=== PATIENT | male | born 1935 | race Two or more races ===

== ENCOUNTER 2021-10-29 22:36 | Inpatient (IN) | payer MEDICARE, OTHER ==
[~2021-10-29] VITALS: Ht 162.6 cm; Wt 63.5 kg
--- NOTE | 2021-10-29 22:38 | NUR ---
STEVE SCHNEIDER, from [facility] c/o SOB. was discharged from [facility] today. pt recieved on NRBM.
--- NOTE | 2021-10-29 22:59 | NUR ---
pt with gtube and f/c with arrival to er. RT at bedside connecting bipap. Picc line nurse in room for insertion of picc line.
--- NOTE | 2021-10-29 23:24 | NUR ---
midline insertion by PICC nurse to right upper extremity. blood sent to lab
--- NOTE | 2021-10-29 23:27 | NUR ---
BIPAP settings set to 15/5 rate of 18 @ 100% fiO2. patient RR ranges from 24-34.
[2021-10-29 23:28] LABS: HEMATOCRIT 31.1 % (36.7-47.1); PLATELET COUNT (AUTO) 294 K/uL (152-348)
[2021-10-29 23:36] LABS: CARBON DIOXIDE 30 mmol/L (21-32); CHLORIDE 102 mmol/L (98-107); CREATININE 0.6 mg/dL (0.6-1.3); GLUCOSE 158 mg/dL (74-106); UREA NITROGEN, BLOOD 10 mg/dL (7-18)
--- NOTE | 2021-10-29 23:45 | NUR ---
cxr completed, pt's sons at bedside. I informed them of the status of the patient that he is not doing well and that the er md will be in to discuss his condition.
[2021-10-29 23:53] LABS: BILIRUBIN,DIRECT 0.1 mg/dL (0.0-0.2); BILIRUBIN,TOTAL 0.2 mg/dL (0.2-1.0)
[2021-10-29 23:54] LABS: ALANINE AMINOTRANSFERASE 15 U/L (16-63); ALKALINE PHOSPHATASE 116 U/L (50-136); ASPARTATE AMINOTRANSFERASE 9 U/L (15-37)
[2021-10-29 23:55] LABS: TOTAL PROTEIN, SERUM 5.8 g/dL (6.4-8.2)
[2021-10-30] VITALS (22 sets, daily range): BP systolic 57–120; BP diastolic 25–80
--- NOTE | 2021-10-30 00:01 | NUR ---
DR Garcia speaking with sons regarding patient's status. BP decreased. order recieved to give 1L NS. patient's sons name and contact: Felecia Freeman Junior Freeman
[2021-10-30] MEDS ORDERED: TAMS-3 GT (00:02)
[2021-10-30] MEDS ORDERED: POTASSIUM CHLOR GT (00:02)
[2021-10-30] MEDS ORDERED: BISA10SU61 RC (00:02)
[2021-10-30] MEDS ORDERED: MULT-213 GT (00:02)
[2021-10-30] MEDS ORDERED: ZINC57OI3 TP (00:02)
[2021-10-30] MEDS ORDERED: SENN-261 GT (00:02)
[2021-10-30] MEDS ORDERED: ATOR10TA GT (00:02)
[2021-10-30] MEDS ORDERED: ASCO-375 GT (00:02)
[2021-10-30] MEDS ORDERED: MEMA10TA GT (00:02)
[2021-10-30] MEDS ORDERED: APIX2.5T GT (00:02)
[2021-10-30] MEDS ORDERED: AMIO200T5 GT (00:02)
[2021-10-30] MEDS ORDERED: LEVA0.6320 IH (00:02)
[2021-10-30 00:03] LABS: *BILIRUBIN,URIN NEGATIVE (NEGATIVE); *CLARITY,URINE CLEAR (CLEAR); *COLOR,URINE YELLOW (YELLOW); *KETONES,URINE NEGATIVE (NEGATIVE); *UROBILINOGEN,URINE 0.2 E.U./dl (NORMAL); LEUKOCYTE ESTERASE ,URINE NEGATIVE (NEGATIVE); NITRITE, URINE NEGATIVE (NEGATIVE); PH,URINE 6.5 (5.0-8.0); UGLUCOSE NEGATIVE (NEGATIVE)
[2021-10-30 00:08] LABS: *BLOOD, URINE TRACE (NEGATIVE)
--- NOTE | 2021-10-30 00:08 | NUR ---
called Dr Snehal Dow. voicemail left for him to call back
[2021-10-30 00:13] LABS: BACTERIA,URINE NONE SEEN /HPF (NONE SEEN); RBC,URINE 0-3 /HPF (0-3); SQUAMOUS EPITHELIAL CELL,UR FEW /HPF (NONE SEEN); WBC,URINE 0-3 /HPF (0-3)
--- NOTE | 2021-10-30 00:16 | NUR ---
EPIC panel DR Vega paged for admission.
[2021-10-30] MEDS ORDERED: PIPERACILLIN SODIUM/TAZOBACTAM 3.375 G in IV DEXTROSE 5% 50 ML IV ONE (00:30)
[2021-10-30] MEDS ORDERED: VANCOMYCIN IV 1,000 MG in IV DEXTROSE 5% 250 ML IV ONE (00:30)
--- NOTE | 2021-10-30 00:40 | NUR ---
DR Vega called back. orders recieved. for admission to ICU
[2021-10-30] MEDS ORDERED: IV NS 1000 ML 1,000 ML IV ONE ×2 (00:45→02:30)
--- NOTE | 2021-10-30 00:47 | NUR ---
report given to Marly. pt to go to ICU 1.
[2021-10-30 00:48] LABS: ABG BASE EXCESS 0.2 mmol/L; ABG HCO3 24.8 mmol/L; ABG PCO2 39.6 mmHg (35.0-45.0); ABG PH 7.414 (7.350-7.450); ABG PO2 55.5 mmHg (75.0-100.0); ABG SITE RIGHT RADIAL; ABG TOTAL HEMOGLOBIN 10.5 G/dL (13.5-18.0); COHb 0.3 % (0.5-1.5); MetHb 0.5 % (0.0-1.5); O2Hb 86.5 % (94.0-97.0); VENT MODE BIPAP
[2021-10-30] MEDS ORDERED: IPRATROPIUM BROMIDE 0.5 MG/2.5 ML NEBU NEB ONE (01:00)
[2021-10-30] MEDS ORDERED: ENOXAPARIN SODIUM 60 MG/0.6 ML DISP.SYRIN SQ ONE ×2 (01:00→01:17)
[2021-10-30] MEDS ORDERED: ALBUTEROL SULFATE 2.5 MG/3 ML NEBU NEB ONE (01:00)
[2021-10-30] MEDS ORDERED: PIPERACILLIN/TAZOBACTAM/D5W 50 ML IV ONE (01:07)
[2021-10-30] MEDS ORDERED: VANCOMYCIN IV 200 ML ONE (01:07)
--- NOTE | 2021-10-30 01:38 | NUR ---
updated ICU with the ABG results. notified of ICU transfer
--- NOTE | 2021-10-30 01:58 | NUR ---
02:00-PATIENT ON BI/PAP IN ER WITH FULL LARGE MASK, INITIAL SETTINGS, 15/5, RR18, FIO2 @ 100%, WITH ABG PO2 55, GOING TO CCU 1 APPROX. 02:00, WITH SAME CURRENT BI/PAP SETTINGS .PT DNR STATUS, RT TRANSPORT TO CCU 1, BACK ON BI/PAP SAME SETTINGS. Rick KATZP Addendum: 10/30/21 at 0204 by GABRIELA BENOIT RT Amended: Links added.
--- NOTE | 2021-10-30 02:10 | NUR ---
recieved patient lethargic , sinus tachy on 100 %non rebreather , no fever , jose from [place] , midline juan luis , blood pressure of 88/45 hr 117 , oxygen saturation 60 % , , wound on sacral area , skin tea on bridge on the nose , dti on right upper mid back Addendum: 10/30/21 at 0420 by AZRA GAONA RN accompanied by by primary nurse and respiratory therapist
[2021-10-30] MEDS ORDERED: MAGNESIUM HYDROXIDE 30 ML LIQUID UDC PO PRN (02:15)
[2021-10-30] MEDS ORDERED: ONDANSETRON 4 MG/2 ML VIAL IV PRN (02:15)
[2021-10-30] MEDS ORDERED: REMEDY ESSENTIAL ZINC PASTE 113 GM TP PRN (02:15)
[2021-10-30] MEDS ORDERED: ZOLPIDEM 5 MG TABLET PO PRN (02:15)
[2021-10-30] MEDS ORDERED: HYDROCODONE/APAP 5-325MG TABLET PO PRN (02:15)
[2021-10-30] MEDS ORDERED: ACETAMINOPHEN 325 MG TABLET PO PRN (02:15)
--- NOTE | 2021-10-30 02:20 | NUR ---
placed the patient on bipap 15/5 rate of 18 , on 100 % fio2, gt intact and patent
--- NOTE | 2021-10-30 02:29 | NUR ---
pt was placed on a NRBM. pt transported via [facility], with 2 RNs. prior to leaving ER, a DNI was obtained signed by Dr Garcia and pt's sons. MANAV Luke 2nd ICU nurse and RT at bedside to receive pt.
--- NOTE | 2021-10-30 02:34 | NUR ---
unable to take the patient down for ctaa to r/o pe , patient is very unstable and desaturates very quickly without the bipap aware
--- NOTE | 2021-10-30 02:45 | NUR ---
dr jacobs is here at bedside , update given on patient's status , vs and medications given and abg 's and lab work
--- NOTE | 2021-10-30 02:57 | NUR ---
saline bolus given
[2021-10-30] MEDS: IV NS 1000 ML 1,000 ML IV PRN ×3 (03:00→22:15)
[2021-10-30] MEDS ORDERED: PHENYLEPHRINE IV 50 MG in IV NORMAL SALINE 245 ML IV PRN (03:00)
--- NOTE | 2021-10-30 03:12 | NUR ---
bs checked 160
[2021-10-30] MEDS ORDERED: PHENYLEPHRINE 10 MG/1 ML VIAL ONE (03:48)
[2021-10-30 05:17] LABS: HEMATOCRIT 35.2 % (36.7-47.1); MEAN CORPUSCULAR HEMOGLOBIN 28.6 uug (23.8-33.4); MEAN CORPUSCULAR VOLUME 88.4 fL (73.0-96.2); PLATELET COUNT (AUTO) 239 K/uL (152-348)
[2021-10-30 05:33] LABS: ABG HCO3 23.8 mmol/L; ABG PCO2 35.8 mmHg (35.0-45.0); ABG PH 7.441 (7.350-7.450); ABG PO2 40.8 mmHg (75.0-100.0); ABG SITE LEFT RADIAL; ABG TOTAL HEMOGLOBIN 10.3 G/dL (13.5-18.0); COHb 0.3 % (0.5-1.5); MetHb 0.3 % (0.0-1.5); VENT MODE BIPAP
[2021-10-30 05:34] LABS: BILIRUBIN,TOTAL 0.5 mg/dL (0.2-1.0); CREATININE 0.6 mg/dL (0.6-1.3); POTASSIUM 4.6 mmol/L (3.5-5.1); TOTAL PROTEIN, SERUM 6.2 g/dL (6.4-8.2)
--- NOTE | 2021-10-30 06:00 | NUR ---
doctor notified of abg results no order received , patient is still on bipap 15/5 18 100 % fio2 , gt clamped npo , npo , iv ns at 125 ml running midline juan luis , no fever
[2021-10-30] MEDS: PIPERACILLIN SODIUM/TAZOBACTAM 3.375 G in IV DEXTROSE 5% 50 ML IV SCH ×3 (08:29→20:42)
[2021-10-30] MEDS: PANTOPRAZOLE SODIUM 40 MG VIAL IV SCH (08:33)
[2021-10-30] MEDS: AMIODARONE HCL 200 MG TABLET PO SCH (08:34)
[2021-10-30] MEDS ORDERED: PIPERACILLIN SODIUM/TAZOBACTAM 3.375 G in IV DEXTROSE 5% 50 ML IV SCH (09:00)
[2021-10-30] MEDS: ALBUMIN HUMAN 25% 100 ML IV SCH ×3 (10:10→20:43)
[2021-10-30] MEDS: REMEDY ESSENTIAL ZINC PASTE 113 GM TOP SCH ×2 (10:16→20:41)
[2021-10-30] MEDS: ENOXAPARIN SODIUM 60 MG/0.6 ML DISP.SYRIN SQ SCH ×2 (13:01→20:43)
[2021-10-30] MEDS ORDERED: IV NORMAL SALINE 250 ML IV ONE (16:26)
[2021-10-30] MEDS ORDERED: IOHEXOL 350 100 ML INFUS..BTL ONE (16:26)
[2021-10-30] MEDS ORDERED: SWABABLE VALVE TRANSFER SET EA MC ONE (16:26)
--- NOTE | 2021-10-30 19:35 | NUR ---
received patient arousable to dep apin , on3 l nc , picc line intact juan luis , with ns at 125 running , garcia intact , dressing intact on affected wounds , , no fever noted
--- NOTE | 2021-10-30 21:00 | NUR ---
placed patient on bipap 28/12 18 on fio2 100 % , talked to son , updates given , referred to primary physician for explanation of cta done today to rule out pe , verbalizes understanding
--- NOTE | 2021-10-30 22:00 | NUR ---
jana id , is here to see patient ,,updates given on history , procedure done and meication running , current lab results
--- NOTE | 2021-10-30 23:35 | NUR ---
patient was switched back to 3l nc , oxygen saturation maintained at 95 %
[2021-10-31] VITALS (26 sets, daily range): BP systolic 102–147; BP diastolic 40–70
[2021-10-31] MEDS ORDERED: VANCOMYCIN IV 1,000 MG in IV DEXTROSE 5% 250 ML IV SCH (01:00)
--- NOTE | 2021-10-31 01:21 | NUR ---
after cleaning and bed bath labored breathing was noted , was placed back on bipap 15 /5 18 fio2 100 %
[2021-10-31] MEDS: ALBUMIN HUMAN 25% 100 ML IV SCH (01:52)
[2021-10-31] MEDS: PIPERACILLIN SODIUM/TAZOBACTAM 3.375 G in IV DEXTROSE 5% 50 ML IV SCH ×4 (04:27→20:19)
--- NOTE | 2021-10-31 05:50 | NUR ---
dr jacobs is notified of cta angiogram , ordered thoracentesis , and notified of cbc , waiting for repeat
--- NOTE | 2021-10-31 06:00 | NUR ---
Pt found off Bipap and on Nasal Cannula at 5 lpm. spo2 85% at this time. placed pt on Non rebreather mask 100% and monitored patient status. spo2 96% and improving. will continue to monitor and titrate fio2. RN aware.
[2021-10-31 06:05] LABS: MEAN CORPUSCULAR VOLUME 88.2 fL (73.0-96.2); PLATELET COUNT (AUTO) 133 K/uL (152-348)
[2021-10-31 06:20] LABS: CARBON DIOXIDE 27 mmol/L (21-32); CHLORIDE 110 mmol/L (98-107); CREATININE 0.3 mg/dL (0.6-1.3); GLUCOSE 91 mg/dL (74-106); PHOSPHOROUS 2.4 mg/dL (2.5-4.9); UREA NITROGEN, BLOOD 6 mg/dL (7-18)
[2021-10-31] MEDS: IV NS 1000 ML 1,000 ML IV PRN ×2 (06:30→20:17)
[2021-10-31 06:33] LABS: HEMATOCRIT 19.9 % (36.7-47.1)
[2021-10-31 06:44] LABS: LYMPHOCYTES % (MANUAL) 15 % (20-40); MONOCYTES % (MANUAL) 4 % (2-10); NEUTROPHILS % (MANUAL) 81 % (42-75)
--- NOTE | 2021-10-31 06:46 | NUR ---
dr jacobs notified of repeat hgb and potasium levels , received orders of 40 meq kcl iv and i1 unit of prbc to transfuse
[2021-10-31] MEDS: POTASSIUM CHLORIDE 50 ML IV SCH ×4 (07:05→10:14)
--- NOTE | 2021-10-31 07:37 | NUR ---
Received blood transfusion and thoracentesis consent from son Audrey via telephone. Will closely monitor.
[2021-10-31 07:53] LABS: ABG HCO3 26.7 mmol/L; ABG PCO2 48.4 mmHg (35.0-45.0); ABG PH 7.359 (7.350-7.450); ABG PO2 81.4 mmHg (75.0-100.0); ABG SITE RIGHT RADIAL; COHb 0.3 % (0.5-1.5); MetHb 0.6 % (0.0-1.5); O2Hb 93.9 % (94.0-97.0)
--- NOTE | 2021-10-31 08:00 | NUR ---
Received patient awake and responsive to noxious stimuli. Patient on a Non Re Breather mask sating at 100%, slightly tachypneic. TELE Afib at 63. Left upper arm PICC line running fluids, K and abx. Skin tear on the bridge of the nose, gel protector applied. Bilateral upper ext. pitting edema. Abd soft and non distended. Bradley draining clear and yellow urine. Safety initiated. Bed in low and locked position. Will continue to monitor.
[2021-10-31] MEDS: REMEDY ESSENTIAL ZINC PASTE 113 GM TOP SCH ×2 (08:18→20:52)
[2021-10-31] MEDS: PANTOPRAZOLE SODIUM 40 MG VIAL IV SCH ×2 (08:18→20:31)
[2021-10-31] MEDS: AMIODARONE HCL 200 MG TABLET PO SCH (08:18)
[2021-10-31] MEDS: ENOXAPARIN SODIUM 60 MG/0.6 ML DISP.SYRIN SQ SCH (08:19)
--- NOTE | 2021-10-31 09:02 | NUR ---
patient seen and evaluated by dr sullivan with new order of H&H stat.
[2021-10-31 09:39] LABS: HEMATOCRIT 21.4 % (36.7-47.1)
--- NOTE | 2021-10-31 10:05 | NUR ---
Placed pt on Bibap by RT. Addendum: 11/01/21 at 0524 by AHSAN PRITCHARD RN Disregard wrong time.
--- NOTE | 2021-10-31 11:43 | NUR ---
Pt. receiving Blood Transfusion at the moment. Vital Signs stable. No Temp. Will continue to monitor.
[2021-10-31] MEDS ORDERED: BISACODYL 10 MG SUPP.RECT RC PRN (12:45)
[2021-10-31] MEDS ORDERED: LEVALBUTEROL HCL NEB 0.63 MG/3 ML NEBU IH PRN (12:45)
[2021-10-31] MEDS ORDERED: HYDROCODONE/APAP 5-325MG TABLET GT PRN (13:47)
[2021-10-31] MEDS ORDERED: MAGNESIUM HYDROXIDE 30 ML LIQUID UDC GT PRN (13:47)
[2021-10-31] MEDS ORDERED: ZOLPIDEM 5 MG TABLET GT PRN (13:47)
--- NOTE | 2021-10-31 13:53 | NUR ---
Wound care nurse at bedside. Was able to visualize the skin, new recommendations discussed. Will refer to SX per wound care nurse. Will continue to monitor.
--- NOTE | 2021-10-31 13:53 | NUR ---
WOUND CARE CONSULT: PT PRESENTS WITH SACRAL STAGE 3 ULCER WITH SURROUNDING INTACT DEEP TISSUE INJURY (PURPLE DISCOLORATION) AND NASAL BRIDGE INTACT DEEP TISSUE INJURY, PRESENT ON ADMISSION. SURGICAL CONSULT CALLED TO DR TIJERINA. RECOMMENDATIONS MADE FOR SKIN PROTECTION AND WOUND CARE. DISCUSSED WITH NURSING STAFF. PT IS ON FIRST STEP SELECT AT [place] [facility]. LOWER EXTREMITIES ARE CONTRACTED. IN AGREEMENT WITH PLAN OF CARE. Addendum: 10/31/21 at 1354 by JOSIAS ACEVES RN Amended: Links added.
--- NOTE | 2021-10-31 13:54 | NUR ---
Blood transfusion completed. Tolerated it well. Vital signs remains stable.
[2021-10-31] MEDS ORDERED: ALBUTEROL SULFATE 2.5 MG/3 ML NEBU NEB PRN (14:00)
--- NOTE | 2021-10-31 14:05 | NUR ---
Notified Dr. Eagle of results from ultrasound. Requested that this telegraphic typewriter mechanic contact DONATO to evaluate the two results against each other from the the CTA Chest. Contacted DONATO and awaiting call back.
[2021-10-31] MEDS: VANCOMYCIN IV 1,000 MG in IV DEXTROSE 5% 250 ML IV SCH (14:44)
--- NOTE | 2021-10-31 16:25 | NUR ---
Surgery PENSION FUND MANAGER at bedside. New sacral wound recommendations. Will continue to monitor.
[2021-10-31] MEDS ORDERED: NEUTRA PHOS PACKET GT ONE (16:30)
[2021-10-31 17:24] LABS: *OCCULT BLOOD STOOL NEGATIVE (NEGATIVE)
--- NOTE | 2021-10-31 17:26 | NUR ---
Bed bath, wound care and Bradley care provided. Tolerated it well. Will continue to monitor.
--- NOTE | 2021-10-31 19:30 | NUR ---
Recieved report, pt awake with eyes open, unable to follow commands, non verbal. On 100% NR, respiration even and unlabored, NT suctioned by RT with thick whitish secretions moderate in amount, breath sounds auscultated with bilateral rhonchi noted and diminished at the bases, O2 sat 98-100%. On continuous director of cardiac rehabilitation, AFib 60's. Torrey. upper extremeties edema note. PICC line to LUÍS, dressing dry and intact, NS @125 ml/min. Complete physical assessment done, mepilex to sacral area noted, picture taken and placed on chart. Repositioned to sides with complete assist X2 staff. Pericare and oral care done. Bradley to drain bag with clear liliya colored urine. Torrey heels off with pillow under x 1. For BT with 1 unit PRBC as soon as available, consent in chart.
[2021-10-31] MEDS: SENNOSIDES 1 TABLET GT SCH (20:30)
[2021-10-31] MEDS: ATORVASTATIN 10 MG TABLET GT SCH (20:31)
--- NOTE | 2021-10-31 21:17 | NUR ---
2nd unit PRBC checked by 2 RN's, transfusion started, via LUÍS PICC line, will monitor for any BT reaction.
--- NOTE | 2021-10-31 22:10 | NUR ---
Placed pt on Bipap by RT.
[2021-11-01] VITALS (24 sets, daily range): BP systolic 116–150; BP diastolic 40–74
--- NOTE | 2021-11-01 00:20 | NUR ---
2nd unit of PRBC completed, no untowards blood transfution reaction noted. VSS
[2021-11-01] MEDS: THERAHONEY GEL 1.5 OZ TUBE TOP SCH ×2 (01:00→09:01)
[2021-11-01] MEDS: PIPERACILLIN SODIUM/TAZOBACTAM 3.375 G in IV DEXTROSE 5% 50 ML IV SCH ×4 (01:13→19:49)
[2021-11-01] MEDS: IV NS 1000 ML 1,000 ML IV PRN (03:38)
[2021-11-01 04:23] LABS: HEMATOCRIT 28.3 % (36.7-47.1); MEAN CORPUSCULAR VOLUME 90.2 fL (73.0-96.2); PLATELET COUNT (AUTO) 148 K/uL (152-348)
[2021-11-01 04:36] LABS: CARBON DIOXIDE 27 mmol/L (21-32); CHLORIDE 110 mmol/L (98-107); CREATININE 0.4 mg/dL (0.6-1.3); GLUCOSE 72 mg/dL (74-106); MAGNESIUM 1.8 mg/dL (1.8-2.4); POTASSIUM 3.2 mmol/L (3.5-5.1); UREA NITROGEN, BLOOD 4 mg/dL (7-18)
[2021-11-01] MEDS: VANCOMYCIN IV 1,000 MG in IV DEXTROSE 5% 250 ML IV SCH (05:10)
--- NOTE | 2021-11-01 05:10 | NUR ---
Vanco trough 14.3, Vanco 1 gm IV started.
--- NOTE | 2021-11-01 08:06 | NUR ---
received resident responsive to tactile stimuli, on bipap machine tolerating well, bipap was changed to simple face mask by technology professional, abg pending
[2021-11-01] MEDS: POTASSIUM CHLORIDE 50 ML IV SCH ×3 (08:51→10:33)
[2021-11-01] MEDS: AMIODARONE HCL 200 MG TABLET GT SCH (08:52)
[2021-11-01] MEDS: ASCORBIC ACID 250 MG TABLET GT SCH (08:53)
[2021-11-01] MEDS: DOXAZOSIN 1 MG TABLET GT SCH (08:54)
[2021-11-01] MEDS: MULTIVITAMINS,THERAPEUTIC TABLET GT SCH (08:54)
[2021-11-01] MEDS: MEMANTINE HCL 10 MG TABLET GT SCH (08:54)
[2021-11-01] MEDS: PANTOPRAZOLE SODIUM 40 MG VIAL IV SCH ×2 (08:59→20:25)
[2021-11-01] MEDS ORDERED: Medication Not On Formulary EA (Multivitamins W-Minerals (Multivitamin With Minerals) 1 GT SCH (09:00)
[2021-11-01] MEDS ORDERED: POTASSIUM CHLORIDE 20 MEQ POWDER PACKET GT SCH (09:00)
[2021-11-01] MEDS ORDERED: TAMSULOSIN HCL 0.4 MG CAP.SR.24H PO SCH (09:00)
[2021-11-01] MEDS ORDERED: POTASSIUM CHLOR 20 MEQ GT SCH (09:00)
[2021-11-01] MEDS ORDERED: AMIODARONE HCL 200 MG TABLET GT SCH (09:00)
[2021-11-01] MEDS: REMEDY ESSENTIAL ZINC PASTE 113 GM TOP SCH ×2 (09:02→20:27)
[2021-11-01 09:19] LABS: ABG BASE EXCESS -4.3 mmol/L; ABG HCO3 21.4 mmol/L; ABG PCO2 41.9 mmHg (35.0-45.0); ABG PH 7.327 (7.350-7.450); ABG PO2 54.6 mmHg (75.0-100.0); ABG SITE LEFT RADIAL; ABG TOTAL HEMOGLOBIN 10.6 G/dL (13.5-18.0); COHb 0.3 % (0.5-1.5); MetHb 0.4 % (0.0-1.5); O2Hb 87.1 % (94.0-97.0)
--- NOTE | 2021-11-01 11:12 | NUR ---
patient seen and evalauted by Dr. Loza with new order to decrease 0.9 ns 1000ml @50cc/hr.
[2021-11-01] MEDS ORDERED: IV NS 1000 ML 1,000 ML IV PRN (11:14)
[2021-11-01] MEDS: ALBUTEROL SULFATE 2.5 MG/ 0.5 ML NEBU NEB SCH ×2 (13:02→18:56)
[2021-11-01] MEDS: ACETYLCYSTEINE 20% 800 MG/4 ML VIAL NEB SCH ×2 (13:02→18:56)
[2021-11-01] MEDS: IPRATROPIUM BROMIDE 0.5 MG/2.5 ML NEBU NEB SCH ×2 (13:02→18:56)
[2021-11-01] MEDS ORDERED: LEVALBUTEROL HCL NEB 0.63 MG/3 ML NEBU NEB SCH (13:30)
[2021-11-01] MEDS ORDERED: POTASSIUM CHLORIDE 20 MEQ POWDER PACKET GT ONE (15:15)
--- NOTE | 2021-11-01 15:15 | NUR ---
Patient seen and evaluated by Kristina Garibay. Ordered lasix and potassium daily.
[2021-11-01] MEDS: FUROSEMIDE 20 MG/2 ML VIAL IV SCH (15:50)
[2021-11-01] MEDS: POTASSIUM CHLORIDE 20 MEQ POWDER PACKET GT SCH (15:52)
[2021-11-01] MEDS ORDERED: VANCOMYCIN IV 1,000 MG in IV DEXTROSE 5% 250 ML IV SCH (17:00)
[2021-11-01] MEDS: SENNOSIDES 1 TABLET GT SCH (20:25)
[2021-11-01] MEDS: ATORVASTATIN 10 MG TABLET GT SCH (20:25)
--- NOTE | 2021-11-01 22:05 | NUR ---
Placed pt on Bipap by RT.
[2021-11-02] VITALS (23 sets, daily range): BP systolic 116–143; BP diastolic 31–78
[2021-11-02] MEDS: IPRATROPIUM BROMIDE 0.5 MG/2.5 ML NEBU NEB SCH ×4 (00:49→19:18)
[2021-11-02] MEDS: ALBUTEROL SULFATE 2.5 MG/ 0.5 ML NEBU NEB SCH ×4 (00:49→19:18)
[2021-11-02] MEDS: ACETYLCYSTEINE 20% 800 MG/4 ML VIAL NEB SCH ×4 (00:49→19:18)
[2021-11-02] MEDS: PIPERACILLIN SODIUM/TAZOBACTAM 3.375 G in IV DEXTROSE 5% 50 ML IV SCH ×4 (01:13→19:42)
[2021-11-02 05:21] LABS: HEMATOCRIT 29.6 % (36.7-47.1); MEAN CORPUSCULAR VOLUME 89.5 fL (73.0-96.2); PLATELET COUNT (AUTO) 157 K/uL (152-348)
[2021-11-02 05:36] LABS: CARBON DIOXIDE 26 mmol/L (21-32); CHLORIDE 109 mmol/L (98-107); CREATININE 0.5 mg/dL (0.6-1.3); GLUCOSE 67 mg/dL (74-106); MAGNESIUM 1.8 mg/dL (1.8-2.4); PHOSPHOROUS 3.4 mg/dL (2.5-4.9); POTASSIUM 3.7 mmol/L (3.5-5.1); UREA NITROGEN, BLOOD 4 mg/dL (7-18)
[2021-11-02 08:01] LABS: ABG BASE EXCESS -0.7 mmol/L; ABG HCO3 23.9 mmol/L; ABG PCO2 39.1 mmHg (35.0-45.0); ABG PH 7.404 (7.350-7.450); ABG PO2 68.6 mmHg (75.0-100.0); ABG SITE LEFT RADIAL; ABG TOTAL HEMOGLOBIN 11.4 G/dL (13.5-18.0); COHb 0.3 % (0.5-1.5); MetHb 0.4 % (0.0-1.5); O2Hb 93.1 % (94.0-97.0)
--- NOTE | 2021-11-02 08:06 | NUR ---
pt removed from bipap and now on nonrebreather, pending ABGs at 0900.
[2021-11-02] MEDS: DOXAZOSIN 1 MG TABLET GT SCH (08:45)
[2021-11-02] MEDS: MEMANTINE HCL 10 MG TABLET GT SCH (08:46)
[2021-11-02] MEDS: AMIODARONE HCL 200 MG TABLET GT SCH (08:46)
[2021-11-02] MEDS: MULTIVITAMINS,THERAPEUTIC TABLET GT SCH (08:46)
[2021-11-02] MEDS: POTASSIUM CHLORIDE 20 MEQ POWDER PACKET GT SCH (08:46)
[2021-11-02] MEDS: PANTOPRAZOLE SODIUM 40 MG VIAL IV SCH ×2 (08:47→20:29)
[2021-11-02] MEDS: ASCORBIC ACID 250 MG TABLET GT SCH (08:47)
[2021-11-02] MEDS: FUROSEMIDE 20 MG/2 ML VIAL IV SCH (08:47)
[2021-11-02] MEDS: REMEDY ESSENTIAL ZINC PASTE 113 GM TOP SCH ×2 (08:47→20:30)
[2021-11-02] MEDS: THERAHONEY GEL 1.5 OZ TUBE TOP SCH (08:49)
--- NOTE | 2021-11-02 09:30 | NUR ---
ABG results improving, CXR showing improvement from yesterday
--- NOTE | 2021-11-02 11:00 | NUR ---
pt family at bedside, concerned about not having nutrition for a few days. Concerns mentioned to TURNER MACHINE OPERATOR, per TURNER MACHINE OPERATOR and pt son's conversation yesterday, goal was to wait until hgb was stable enough.
--- NOTE | 2021-11-02 12:00 | NUR ---
Spoke to hospitalist, okay for pt to resume tube feeding. Hgb level is 9.9. Jevity 1.2 and lila started, will continue to monitor
[2021-11-02] MEDS: ARGININE/GLUTAMINE/CALCIUM BMB 1 EACH POWD.PACK GT SCH ×2 (13:03→17:27)
[2021-11-02] MEDS: JEVITY 1.2 1000 ML LIQUID GT PRN (13:03)
--- NOTE | 2021-11-02 19:00 | NUR ---
Received patient on NRB mask at 15lpm o2. Patient was then placed on BIPAP 15/5 R18 100% FiO2 as ordered. Vent plugged on red outlet, settings checked and alarm audible and within normal limits. Suctioned PRN. Will continue to monitor.
--- NOTE | 2021-11-02 19:30 | NUR ---
Report received from outgoing RN, pt awake with eyes open non verbal. On 100% NRB, O2 sat adeq. respiration even and unlabored. HOB elevated, aspiration precaution maintained. TF via PEG with Jevity 1.2 at 30 ml/hr. Repositioned to side. Bradley intact, draining large amount of clear yellow urine.
--- NOTE | 2021-11-02 20:00 | NUR ---
Receiving TF gastric residual 220ml, Alka COCHRAN made aware with orders made and carried out.
[2021-11-02] MEDS: SENNOSIDES 1 TABLET GT SCH (20:29)
[2021-11-02] MEDS: ATORVASTATIN 10 MG TABLET GT SCH (20:29)
--- NOTE | 2021-11-02 22:05 | NUR ---
NT suctioned by RT with thick whitish secretions moderate in amt. HR 120-130's, repositioned pt to side. Placed on Bipap 5/15, RR 18 100% FIO2 by RT. Closely monitored.
[2021-11-03] VITALS (20 sets, daily range): BP systolic 98–139; BP diastolic 33–74
--- NOTE | 2021-11-03 | NUR ---
Gastric residual 100 ml, TF with Jevity 1.2 at 20 ml/hr. Aspiration prec maintained.
[2021-11-03] MEDS: ACETYLCYSTEINE 20% 800 MG/4 ML VIAL NEB SCH ×4 (00:42→19:31)
[2021-11-03] MEDS: IPRATROPIUM BROMIDE 0.5 MG/2.5 ML NEBU NEB SCH ×4 (00:43→19:31)
[2021-11-03] MEDS: ALBUTEROL SULFATE 2.5 MG/ 0.5 ML NEBU NEB SCH ×4 (00:43→19:31)
[2021-11-03] MEDS: PIPERACILLIN SODIUM/TAZOBACTAM 3.375 G in IV DEXTROSE 5% 50 ML IV SCH ×4 (01:16→19:58)
[2021-11-03 04:53] LABS: HEMATOCRIT 32.6 % (36.7-47.1); MEAN CORPUSCULAR HEMOGLOBIN 29.3 uug (23.8-33.4); MEAN CORPUSCULAR VOLUME 88.9 fL (73.0-96.2); PLATELET COUNT (AUTO) 194 K/uL (152-348)
[2021-11-03 05:04] LABS: CREATININE 0.6 mg/dL (0.6-1.3); MAGNESIUM 1.8 mg/dL (1.8-2.4); PHOSPHOROUS 3.2 mg/dL (2.5-4.9); POTASSIUM 3.2 mmol/L (3.5-5.1)
[2021-11-03] MEDS ORDERED: POTASSIUM CHLORIDE 20 MEQ POWDER PACKET GT ONE (07:00)
--- NOTE | 2021-11-03 07:30 | NUR ---
RT Quentin is at bedside, oral care, CPT, suctions and breathing tx done by RT. Changed from non re breather to simple mask at 10L sating at 97%. Will closely monitor.
[2021-11-03] MEDS: POTASSIUM CHLORIDE 50 ML IV SCH ×4 (07:54→11:27)
[2021-11-03] MEDS: ALBUMIN HUMAN 25% 100 ML IV SCH ×3 (07:57→17:40)
--- NOTE | 2021-11-03 08:00 | NUR ---
Albumin started per order. No adverse reaction noted. Will closely monitor.
--- NOTE | 2021-11-03 08:00 | NUR ---
Received patient laying in bed. Lethargic. Unable to open eyes when name is called or to painful stimuli. Pt is on simple mask at 10L. Vital signs stable, No temperature. SR at 89 in the monitor. PICC on the left upper arm and midline on the right upper arm, remains patent and intact. correction assessment done BUE swelling and bruises. Sacral wound, dressing in place. Lower extremities rigid. Bradley draining clear and yellow urine. GTUBE in place, tolerating feeding Jevity 1.2 at 40 cc/hr. Safety initiated. Call light within reach. Will closely monitor.
[2021-11-03] MEDS: ASCORBIC ACID 250 MG TABLET GT SCH (08:35)
[2021-11-03] MEDS: AMIODARONE HCL 200 MG TABLET GT SCH (08:35)
[2021-11-03] MEDS: MULTIVITAMINS,THERAPEUTIC TABLET GT SCH (08:35)
[2021-11-03] MEDS: PANTOPRAZOLE SODIUM 40 MG VIAL IV SCH ×2 (08:35→20:56)
[2021-11-03] MEDS: MEMANTINE HCL 10 MG TABLET GT SCH (08:35)
[2021-11-03] MEDS: FUROSEMIDE 20 MG/2 ML VIAL IV SCH (08:35)
--- NOTE | 2021-11-03 08:45 | NUR ---
Fco at bedside. Update given. Fco has spoken to son Audrey via telephone. Will continue to monitor.
[2021-11-03] MEDS: DOXAZOSIN 1 MG TABLET GT SCH (09:00)
--- NOTE | 2021-11-03 09:00 | NUR ---
Corey BOOKKEEPING TEACHER is at bedside. Update given. Will continue to monitor.
[2021-11-03] MEDS: REMEDY ESSENTIAL ZINC PASTE 113 GM TOP SCH ×2 (09:14→20:56)
[2021-11-03] MEDS: THERAHONEY GEL 1.5 OZ TUBE TOP SCH (09:14)
[2021-11-03] MEDS: ARGININE/GLUTAMINE/CALCIUM BMB 1 EACH POWD.PACK GT SCH ×2 (09:14→16:28)
--- NOTE | 2021-11-03 09:16 | NUR ---
Spoke to Pharmacy LINDSAY Martinez, BP is 99/50 and pt is receiving Lasix IV. Will closely monitor.
[2021-11-03] MEDS: POTASSIUM CHLORIDE 20 MEQ POWDER PACKET GT SCH (09:23)
--- NOTE | 2021-11-03 09:39 | NUR ---
Pt is a more lethargic today. Pt does not open eyes to name or painful stimuli. Brother was just at bedside and per his cousin "he was able to open his eye and nod yes" to him yesterday. SAMMIE Nicole was made aware. No new orders.
--- NOTE | 2021-11-03 10:25 | NUR ---
RT at bedside suctioning pt. Pt was able to look up at the RT as he was suctioning. Will closely monitor.
--- NOTE | 2021-11-03 12:03 | NUR ---
Pt desaturated to the high 70's low 80's. Pulmonary toileting being done by RT. Pt now back on BiPAP 15/5 rate of 18 at 100% FiO2. Health care provided made aware. Will continue to monitor.
--- NOTE | 2021-11-03 12:13 | NUR ---
Pt is on BiPAP 15/5 rate 18 FiO2 of 100% but pt is still SOB and still saturating in the low 80's. Health care provider made aware, new orders to do a STAT CXR. Will closely monitor.
--- NOTE | 2021-11-03 12:35 | NUR ---
Hold tube feeding per Corey [employer]CINCT POLICE LIEUTENANT. Will continue to monitor.
--- NOTE | 2021-11-03 15:14 | NUR ---
Remove PICC line on the left upper arm as ordered by HCP. Will continue to monitor.
--- NOTE | 2021-11-03 18:32 | NUR ---
Pt remains on BiPAP in the rate of 28/12 at 100%. Oral care provided. Catheter care provided. Turned and repositioned Q2H. Afebrile. GT feeding is held per MD order. Vital signs stable. Good urine output. No new skin issues noted. All meds given as ordered. All needs met. Safety and comfort measures maintained t/o shift.
--- NOTE | 2021-11-03 19:30 | NUR ---
Report received. Patient's sons at bedside. Plan of care discussed including DNI, both verbalized understanding. Patient with eyes open, non verbal, appears to watch TV but doesn't follow any commands. On BIPAP settings 15/5 rate=18 and KDY2=802%. O2 saturations 100%. risk management professional SR rate 70's-80's. Assessment done. Addendum: 11/04/21 at 0115 by LORENA LEIVA RN Amended: Links added. Addendum: 11/04/21 at 0119 by LORENA LEIVA RN Amended: Links added. Addendum: 11/04/21 at 0120 by LORENA LEIVA RN Amended: Links added. Addendum: 11/04/21 at 0120 by LORENA LEIVA RN Amended: Links added. Addendum: 11/04/21 at 0120 by LORENA LEIVA RN Amended: Links added. Addendum: 11/04/21 at 0121 by LORENA LEIVA RN Amended: Links added.
--- NOTE | 2021-11-03 20:00 | NUR ---
RT at bedside; treatments given. Patient turned and repositioned. Nasopharyngeal deep suctioning done by RT post treatments. With thick white to beck secretions. Has poor cough reflex. Oral care rendered. Still non verbal. Addendum: 11/04/21 at 0119 by LORENA LEIVA RN Amended: Links added. Addendum: 11/04/21 at 0120 by LORENA LEIVA RN Amended: Links added. Addendum: 11/04/21 at 0120 by LORENA LEIVA RN Amended: Links added. Addendum: 11/04/21 at 0120 by LORENA LEIVA RN Amended: Links added. Addendum: 11/04/21 at 0121 by LORENA LEIVA RN Amended: Links added.
[2021-11-03] MEDS: ATORVASTATIN 10 MG TABLET GT SCH (20:57)
[2021-11-03] MEDS: SENNOSIDES 1 TABLET GT SCH (20:58)
--- NOTE | 2021-11-03 23:30 | NUR ---
Patient's son called; updated of condition.
[2021-11-04] VITALS (24 sets, daily range): BP systolic 104–144; BP diastolic 56–86
--- NOTE | 2021-11-04 | NUR ---
GT feedings tolerated well at 20ml/H; rate increased to 30ml/H.
[2021-11-04] MEDS ORDERED: ALBUMIN HUMAN 25% 50 ML ONE ×2 (00:16)
[2021-11-04] MEDS: ALBUMIN HUMAN 25% 100 ML IV SCH (00:25)
[2021-11-04] MEDS: ACETYLCYSTEINE 20% 800 MG/4 ML VIAL NEB SCH ×4 (01:03→21:04)
[2021-11-04] MEDS: IPRATROPIUM BROMIDE 0.5 MG/2.5 ML NEBU NEB SCH ×4 (01:03→21:04)
[2021-11-04] MEDS: ALBUTEROL SULFATE 2.5 MG/ 0.5 ML NEBU NEB SCH ×4 (01:03→21:05)
[2021-11-04] MEDS: PIPERACILLIN SODIUM/TAZOBACTAM 3.375 G in IV DEXTROSE 5% 50 ML IV SCH ×3 (01:26→13:38)
[2021-11-04 04:58] LABS: HEMATOCRIT 31.7 % (36.7-47.1); MEAN CORPUSCULAR VOLUME 90.2 fL (73.0-96.2); PLATELET COUNT (AUTO) 175 K/uL (152-348)
[2021-11-04 05:15] LABS: CARBON DIOXIDE 36 mmol/L (21-32); CHLORIDE 103 mmol/L (98-107); CREATININE 0.5 mg/dL (0.6-1.3); GLUCOSE 135 mg/dL (74-106); MAGNESIUM 1.6 mg/dL (1.8-2.4); POTASSIUM 3.7 mmol/L (3.5-5.1); UREA NITROGEN, BLOOD 19 mg/dL (7-18)
--- NOTE | 2021-11-04 06:33 | NUR ---
Cleaned for small soft brown BM. Tachypneic and desaturates easily during care such as oral care, turning and repositioning. O2 sats down to 83-85% HOB elevated above 30 degrees at all times. BPs remain stable. Addendum: 11/04/21 at 0634 by LORENA LEIVA RN Amended: Links added. Addendum: 11/04/21 at 0635 by LORENA LEIVA RN Amended: Links added.
[2021-11-04] MEDS: ACETAMINOPHEN 325 MG TABLET GT PRN ×2 (06:36→20:25)
[2021-11-04] MEDS: PANTOPRAZOLE SODIUM 40 MG VIAL IV SCH ×2 (08:03→20:16)
[2021-11-04] MEDS: DOXAZOSIN 1 MG TABLET GT SCH (08:05)
[2021-11-04] MEDS: POTASSIUM CHLORIDE 20 MEQ POWDER PACKET GT SCH (08:05)
[2021-11-04] MEDS: ASCORBIC ACID 250 MG TABLET GT SCH (08:06)
[2021-11-04] MEDS: MULTIVITAMINS,THERAPEUTIC TABLET GT SCH (08:06)
[2021-11-04] MEDS: AMIODARONE HCL 200 MG TABLET GT SCH (08:06)
[2021-11-04] MEDS: ARGININE/GLUTAMINE/CALCIUM BMB 1 EACH POWD.PACK GT SCH ×2 (08:08→17:06)
[2021-11-04] MEDS: JEVITY 1.2 1000 ML LIQUID GT PRN (08:36)
[2021-11-04] MEDS: MAGNESIUM SULFATE/D5W 100 ML IV SCH ×2 (08:49→10:01)
[2021-11-04] MEDS: MEMANTINE HCL 10 MG TABLET GT SCH (09:11)
[2021-11-04] MEDS: THERAHONEY GEL 1.5 OZ TUBE TOP SCH (09:11)
[2021-11-04] MEDS: REMEDY ESSENTIAL ZINC PASTE 113 GM TOP SCH ×2 (09:14→21:24)
--- NOTE | 2021-11-04 09:16 | NUR ---
pt was suctioned by respiratory therapist at 0800, wind turbine service technician change bipap to non rebreather mask 15l l/min, O2 sat was on 100, at 9pm patient 02 sat was on 90, normal sinus , tachycardia at rate of 128-135, initiated to place patient back to bipap, respiratory therapy was informed, patients o2 sat. increased to 99% and heart rate 89, pt/ot came but patient cannot tolerate.
--- NOTE | 2021-11-04 10:21 | NUR ---
patient seen and evaluated by Dr hilario, with patients son at bedside, Md explained patients prognosis and option of hospice care to the son.
--- NOTE | 2021-11-04 19:30 | NUR ---
Report received, tera at bedside. Patient with eyes open, non verbal but appears to be looking around. Plan of care discussed with tera. Patient is DNI. O2 10L by Face mask, saturations above 92%. nurse monitoring: SR rate 80's. Assessment completed and documented. Addendum: 11/04/21 at 210 by LORENA LEIVA RN Amended: Links added. Addendum: 11/04/21 at 210 by LORENA LEIVA RN Amended: Links added.
--- NOTE | 2021-11-04 20:00 | NUR ---
Temp=99.3; skin warm and dry. Extra blankets removed. Tylenol given via patent GT. Feeding residuals=15 ml. Rate maintained at 60 ml/H. Addendum: 11/04/21 at 2103 by LORENA LEIVA RN Amended: Links added.
[2021-11-04] MEDS: ATORVASTATIN 10 MG TABLET GT SCH (20:15)
[2021-11-04] MEDS: SENNOSIDES 1 TABLET GT SCH (20:15)
--- NOTE | 2021-11-04 20:45 | NUR ---
O2 sat dropping, patient tachypneic. RT called. Placed on BIPAP 15/5, rate=18 and KSF8=628%. Patient remains awake, son at bedside. Addendum: 11/04/21 at 2055 by LORENA LEIVA RN Amended: Links added. Addendum: 11/04/21 at 2100 by LORENA LEIVA RN Amended: Links added. Addendum: 11/04/21 at 2102 by LORENA TAECHARATKIJ RN Amended: Links added.
[2021-11-04] MEDS: PIPERACILLIN SODIUM/TAZOBACTAM 3.375 G in IV DEXTROSE 5% 100 ML IV SCH (21:41)
--- NOTE | 2021-11-04 21:50 | NUR ---
PATIENT PLACED BACK ON BI/PAP WITH FULL LARGE MASK @ 20:55 , WITH BI/PAP SETTINGS, RATE 18,15/5, FIO2 @100%, SAT 92% THEN SUCTION, AND CPT TO RIGHT LENCHO, SAT STARTING TO GET BETTER , 98%,. Rick KATZP Addendum: 11/04/21 at 2153 by GABRIELA BENOIT RT Amended: Links added.
[2021-11-05] VITALS (24 sets, daily range): BP systolic 80–146; BP diastolic 45–81
--- NOTE | 2021-11-05 01:47 | NUR ---
Suddenly desaturates again. Saturation 82-88%. Suctioned and repositioned. RT at bedside. With small amounts of thick beige bloody tinged secretions. HOB elevated. O2 saturation improved after 10 minutes.
[2021-11-05] MEDS: ACETYLCYSTEINE 20% 800 MG/4 ML VIAL NEB SCH ×5 (01:50→19:32)
[2021-11-05] MEDS: IPRATROPIUM BROMIDE 0.5 MG/2.5 ML NEBU NEB SCH ×5 (01:50→19:33)
[2021-11-05] MEDS: ALBUTEROL SULFATE 2.5 MG/ 0.5 ML NEBU NEB SCH ×5 (01:50→19:33)
--- NOTE | 2021-11-05 04:30 | NUR ---
Has another episode of desaturation, with tachypnea and tachycardia HR in the low 100's. RT @ bedside. Deep suctioning done. Turned and repositioned. Patient awake. Closely monitored. Addendum: 11/05/21 at 0605 by LORENA LEIVA RN Amended: Links added.
[2021-11-05 04:48] LABS: HEMATOCRIT 32.7 % (36.7-47.1); MEAN CORPUSCULAR HEMOGLOBIN 29.3 uug (23.8-33.4); MEAN CORPUSCULAR VOLUME 89.5 fL (73.0-96.2); PLATELET COUNT (AUTO) 167 K/uL (152-348)
[2021-11-05 05:01] LABS: CREATININE 0.7 mg/dL (0.6-1.3); MAGNESIUM 2.3 mg/dL (1.8-2.4); PHOSPHOROUS 2.8 mg/dL (2.5-4.9); POTASSIUM 4.2 mmol/L (3.5-5.1)
[2021-11-05] MEDS: PIPERACILLIN SODIUM/TAZOBACTAM 3.375 G in IV DEXTROSE 5% 100 ML IV SCH ×3 (05:16→21:23)
[2021-11-05] MEDS: ACETAMINOPHEN 325 MG TABLET GT PRN ×2 (05:20→16:04)
--- NOTE | 2021-11-05 05:30 | NUR ---
O2 saturation slowly improving. BPs remain stable.
[2021-11-05] MEDS: JEVITY 1.2 1000 ML LIQUID GT PRN (06:32)
--- NOTE | 2021-11-05 06:42 | NUR ---
Remains on BIPAP 15/ rate=18, MQU1=667%; O2 sats 92-96%. With episodes of desaturation even on BIPAP. Sats improved with deep suctioning and repositioning. With small to moderate thick beige bloody tinged secretions. Tolerating GT feedings fairly well at 60 ml/H. Urine output only 275 ml for 12 hours. Condition guarded.
[2021-11-05 08:06] LABS: ABG BASE EXCESS 7.2 mmol/L; ABG HCO3 31.5 mmol/L; ABG PCO2 43.8 mmHg (35.0-45.0); ABG PH 7.475 (7.350-7.450); ABG PO2 57.8 mmHg (75.0-100.0); ABG SITE RIGHT RADIAL; ABG TOTAL HEMOGLOBIN 11.2 G/dL (13.5-18.0); COHb 0.3 % (0.5-1.5); MetHb 0.1 % (0.0-1.5); O2Hb 90.5 % (94.0-97.0)
[2021-11-05] MEDS: PANTOPRAZOLE SODIUM 40 MG VIAL IV SCH ×2 (08:11→20:08)
[2021-11-05] MEDS: DOXAZOSIN 1 MG TABLET GT SCH (08:12)
[2021-11-05] MEDS: MULTIVITAMINS,THERAPEUTIC TABLET GT SCH (08:13)
[2021-11-05] MEDS: MEMANTINE HCL 10 MG TABLET GT SCH (08:14)
[2021-11-05] MEDS: POTASSIUM CHLORIDE 20 MEQ POWDER PACKET GT SCH (08:14)
[2021-11-05] MEDS: AMIODARONE HCL 200 MG TABLET GT SCH (08:15)
[2021-11-05] MEDS: ASCORBIC ACID 250 MG TABLET GT SCH (08:15)
[2021-11-05] MEDS: REMEDY ESSENTIAL ZINC PASTE 113 GM TOP SCH ×2 (08:16→20:17)
[2021-11-05] MEDS: ARGININE/GLUTAMINE/CALCIUM BMB 1 EACH POWD.PACK GT SCH ×2 (08:17→16:04)
[2021-11-05] MEDS: THERAHONEY GEL 1.5 OZ TUBE TOP SCH (08:17)
--- NOTE | 2021-11-05 08:30 | NUR ---
Dr. Eagle spoke with patient's sons at bedside regarding poor prognosis.
--- NOTE | 2021-11-05 08:36 | NUR ---
I LEFT 2 DIFFERENT MESSAGES FOR DONATO. NEEDS RESULTS OF CHEST XRAY ANJEL. CHEST XRAY HAS NOT BEEN READ SINCE 0530 AM I WILL FOLLOW UP IN 10 MINUTES
--- NOTE | 2021-11-05 08:45 | NUR ---
Alexandro Nicole discussing with patient's sons at bedside regarding patient's prognosis.
--- NOTE | 2021-11-05 08:59 | NUR ---
CHEST XRAY RESULT IS READY ON PACS
[2021-11-05] MEDS: APIXABAN 2.5 MG TABLET PO SCH ×2 (09:46→20:09)
--- NOTE | 2021-11-05 09:59 | NUR ---
Patient's sons at bedside and decided for patient to be DNR/DNI code status. Informed primary physician.
--- NOTE | 2021-11-05 11:54 | NUR ---
Alexandro Nicole, QUALITY ENGINEER at bedside and spoke with patient's and two sons. Per Alexandro, patient's family does not want anything invasive for the patient. No chest physiotherapy, BiPap, labs, chest x-ray, suctioning, or vasopressors. However, patient will still receive G-Tube feeding and medications.
[2021-11-05] MEDS ORDERED: SCOPOLAMINE PATCH 1 MG/72 HRS PATCH TD SCH (12:00)
[2021-11-05] MEDS: MORPHINE SULFATE 2 MG/1 ML DISP.SYRIN IV PRN ×3 (13:54→16:03)
[2021-11-05] MEDS: LORAZEPAM 2 MG/1 ML VIAL IV PRN (15:04)
[2021-11-05] MEDS ORDERED: MORPHINE SULFATE PF IV DRIP 100 MG in IV DEXTROSE 5% 96 ML IV PRN (16:00)
--- NOTE | 2021-11-05 16:40 | NUR ---
patient decided to start morphine drip. called primary for order.
[2021-11-05] MEDS: MORPHINE SULFATE PF IV DRIP 100 MG in IV DEXTROSE 5% 96 ML IV PRN (17:06)
--- NOTE | 2021-11-05 19:30 | NUR ---
Report received. Patient on comfort measures, family at bedside. On 100% non rebreather mask, O2 saturations 98-100%. Spoke to patient's sons. On Morphine drip at 2 mg/H via MILO midline. Patient is DNR, DNI. Plan of care discussed. Son Junior stated "I don't want to increase the Morphine if he is comfortable, only if he really needs it" "We do not want to push it, but let nature to take its course." Patient's son advised appropriately. Addendum: 11/05/21 at 2107 by LORENA LEIVA RN Amended: Links added.
--- NOTE | 2021-11-05 19:38 | NUR ---
Family at bedside refused to have scheduled resp. neb. tx's to be administered at this time. RN TommieT aware/notified.
--- NOTE | 2021-11-05 19:50 | NUR ---
Temp=99 axillary. Cooling measures initiated. Tylenol given via patent GT. PM care done; cleaned a moderate liquid soft brown BM. Skin care provided. Turned and repositioned. Patient opened eyes during turning but non verbal. Addendum: 11/05/21 at 2131 by LORENA LEIVA RN Amended: Links added.
[2021-11-05] MEDS: ACETAMINOPHEN 650 MG/20.3 ML LIQUID UDC GT PRN (19:52)
[2021-11-05] MEDS: ATORVASTATIN 10 MG TABLET GT SCH (20:09)
[2021-11-05] MEDS: SENNOSIDES 1 TABLET GT SCH (21:00)
--- NOTE | 2021-11-05 21:00 | NUR ---
More family visiting.
--- NOTE | 2021-11-05 22:25 | NUR ---
Spoke to Brian Nicole NP re: patient's condition. Okayed to transfer patient to Tele.
[2021-11-05] MEDS ORDERED: MIDODRINE HCL 5 MG TABLET PO SCH (23:45)
[2021-11-06] VITALS (10 sets, daily range): BP systolic 91–114; BP diastolic 15–56
[2021-11-06] MEDS: ALBUTEROL SULFATE 2.5 MG/ 0.5 ML NEBU NEB SCH ×2 (01:30→07:16)
[2021-11-06] MEDS: ACETYLCYSTEINE 20% 800 MG/4 ML VIAL NEB SCH ×2 (01:30→07:16)
[2021-11-06] MEDS: IPRATROPIUM BROMIDE 0.5 MG/2.5 ML NEBU NEB SCH ×2 (01:30→07:16)
[2021-11-06] MEDS: JEVITY 1.2 1000 ML LIQUID GT PRN (01:54)
--- NOTE | 2021-11-06 02:00 | NUR ---
Checked for GT residuals above 150 ml; Jevity feedings held.
--- NOTE | 2021-11-06 05:10 | NUR ---
Still with high residuals; will continue to hold GT feedings for now. Addendum: 11/06/21 at 0517 by LORENA LEIVA RN Amended: Links added.
[2021-11-06] MEDS: PIPERACILLIN SODIUM/TAZOBACTAM 3.375 G in IV DEXTROSE 5% 100 ML IV SCH ×3 (05:14→21:01)
--- NOTE | 2021-11-06 06:00 | NUR ---
Am care rendered. Patient's transfer discussed with sons.
--- NOTE | 2021-11-06 06:15 | NUR ---
Transferred to room 330 per bed. VS stable.
--- NOTE | 2021-11-06 06:39 | NUR ---
Remains on 100% non rebreather, O2 saturations 95-97%. Morphine drip at 3 mg/H. drill sharpener: SR rate 90's. Continue to hold feedings due to high gastric residuals. Urine output 150 ml x 12H.
--- NOTE | 2021-11-06 07:16 | NUR ---
HHN tx 2.5 mg Albuterol + 0.5 mg Atrovent + MucoMyst not given at this time per son request, no more tx / cpt / suctioning. RN aware
--- NOTE | 2021-11-06 08:00 | NUR ---
PATIENT IN BED WITH EYES CLOSE, NO SS OF DISTRESS OR PAIN ON MORPHINE DRIP NOW ON 3MG/HR, TITRATE FOR COMFORT. SR ON MONITOR. FAMILY AT BEDSIDE, ALL SUPPORTIVE WITH CARE
[2021-11-06] MEDS: DOXAZOSIN 1 MG TABLET GT SCH (09:00)
[2021-11-06] MEDS: ARGININE/GLUTAMINE/CALCIUM BMB 1 EACH POWD.PACK GT SCH ×2 (09:46→15:27)
[2021-11-06] MEDS: PANTOPRAZOLE SODIUM 40 MG VIAL IV SCH ×2 (09:47→20:33)
[2021-11-06] MEDS: POTASSIUM CHLORIDE 20 MEQ POWDER PACKET GT SCH (09:47)
[2021-11-06] MEDS: REMEDY ESSENTIAL ZINC PASTE 113 GM TOP SCH ×2 (09:48→20:35)
[2021-11-06] MEDS: THERAHONEY GEL 1.5 OZ TUBE TOP SCH (09:48)
[2021-11-06] MEDS: ASCORBIC ACID 250 MG TABLET GT SCH (09:52)
[2021-11-06] MEDS: MEMANTINE HCL 10 MG TABLET GT SCH (09:53)
[2021-11-06] MEDS: AMIODARONE HCL 200 MG TABLET GT SCH (09:53)
[2021-11-06] MEDS: MULTIVITAMINS,THERAPEUTIC TABLET GT SCH (09:53)
--- NOTE | 2021-11-06 10:00 | NUR ---
SEEN BY DR ARCE SEE NOTES
--- NOTE | 2021-11-06 12:00 | NUR ---
SEEN BY DR DOBSON AGREED PALN OF CARE AND CHANGED STATUS TO MED/SURG FEEDING RESIDUAL 80-100 MLS. FEEDING HELD FOR NOW
[2021-11-06] MEDS: LORAZEPAM 2 MG/1 ML VIAL IV PRN ×2 (12:46→21:00)
--- NOTE | 2021-11-06 14:59 | NUR ---
CONTINUE MORPHINE DRIP ORDERED FOR COMFORT, NRM 15 L SATURATING 97%. PATIENT STATUS CHANGED TO MED/SURG
[2021-11-06] MEDS: ACETAMINOPHEN 650 MG/20.3 ML LIQUID UDC GT PRN (15:27)
[2021-11-06] MEDS: MORPHINE SULFATE PF IV DRIP 100 MG in IV DEXTROSE 5% 96 ML IV PRN (16:47)
--- NOTE | 2021-11-06 19:30 | NUR ---
Received patient lying in bed. Leo Garcia at bedside. Patient appears calm and comfortable at this time. On O2 at 15LPM via non-rebreather mask. O2 sat at 99%. Audible crackles heard. In no apparent distress. On Morphine drip at 7mg/hr. GT feeding on going at 60cc/hr. Right upper arm midline intact and patent. TKO at 10cc/hr. Bradley catheter intact and draining via gravity. Needs assessed and anticipated to. Safety measure initiated.
--- NOTE | 2021-11-06 20:00 | NUR ---
Check residual via GT and obtained 500ml of GT feeding residual. Stop GT feeding at this time. Continue to monitor.
[2021-11-06] MEDS: ATORVASTATIN 10 MG TABLET GT SCH (20:33)
[2021-11-06] MEDS: SENNOSIDES 1 TABLET GT SCH (20:34)
--- NOTE | 2021-11-06 21:12 | NUR ---
Family requesting for patient to be placed back on telemetry. Informed Dr. Mcdonald and obtain order to transfer patient to telemetry per family's request. Order noted and will carry out.
--- NOTE | 2021-11-06 21:26 | NUR ---
Patient Sinus tachy on tele with HR fluctuating between 116-120. Continue to monitor.
--- NOTE | 2021-11-06 22:00 | NUR ---
Noted O2 sat fluctuating between 86-88% on 15 LPM via nonrebreather mask and increase respiration. Increase Morphine drip to 8mg/hr. O2 sat up to 92%. Appears comfortable. Continue to monitor.
[2021-11-07 00:05] VITALS: BP 84/28
[2021-11-07 00:10] VITALS: BP 127/96
--- NOTE | 2021-11-07 00:10 | NUR ---
@005: respiratory equipment assistant obtained VS. Patient BP on right leg 84/28, left leg 78/23. Temp 98.2 axillary, HR 112 and resp. 15. Placed BP cuff on left arm, BP was 127/96. O2 sat fluctuating between 85-88% with O2 at 15LPM via non-rebreather mask. In no acute distress. Morphine drip remains on 8mg/hr via IV. Continue to monitor
[2021-11-07 01:05] VITALS: BP 84/27
--- NOTE | 2021-11-07 01:05 | NUR ---
Recheck VS as follow: HR 97, BP 84/27, O2 sat fluctuating between 82-85. Pt remains on O2 at 15LPM via non-rebreather mask. Patient mouth breathing. Radial pulses palpable. Pedal pulses faint. Increase Morphine to 9mg/hr. Telephone call to patient son Jose and updated on patient current condition and states understanding. Continue to monitor.
--- NOTE | 2021-11-07 01:37 | NUR ---
Patient son Junior and Audrey at bedside. Updated on patient condition.
--- NOTE | 2021-11-07 01:57 | NUR ---
Patient babatunde on tele at 52/min. BP remains on the 80's. RR at 30/min. Morphine at 9mg/hr. Sons at bedside.
--- NOTE | 2021-11-07 02:10 | NUR ---
Patient with shallow breathing. HR fluctuating between 30-40/min. O2 sat at 56% with 15LPM via non-rebreather mask. Appears comfortable. Family remains at bedside. Continue to monitor.
--- NOTE | 2021-11-07 02:15 | NUR ---
Patient apneic for 5 mins. Pupils fixed and dilated. No audible heart tones, no breath sound for 1 minute. No palpable pulses. No corneal reflexes. Unresponsive. Asystole on EKG.
--- NOTE | 2021-11-07 02:30 | NUR ---
Patient pronounced by MANAV Medellin at 219. Post mortem care rendered. Appropriate personnel notified-Melina Garcia, Supply And Distribution Manager MANAV Lino, [facility] [employer]. Paperwork and documents completed, signed by katy Gan. Mortuary contacted ETA given, arriving in 1 1/2 hour. Family made aware of above. Emotional support provided. Addendum: 11/07/21 at 0350 by MARIBELL LO RN SAMMIE montiel, Lm Olsen
--- NOTE | 2021-11-07 04:22 | NUR ---
Mortuary arrived and picked up body. Paper work completed and signed. Copy provided to Mortuary. 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
== END 2021-11-07 04:25 | DRG 871 ==
LOC: ER 22:40 → CCU 10-30 01:33 → TELE3 11-06 06:30 → MEDSURG3 11-06 11:07 → TELE3 11-06 21:15
PROVIDERS: ADMIT Student in an Organized Health Care Education/Training Program; ATTEND Nurse Practitioner Family
PROC: 05H933Z Insertion of Infusion Device into Right Brachial Vein, Percutaneous Approach (ICD-10-PCS; 2021-10-29)
PROC: 5A09457 Assistance with Respiratory Ventilation, 24-96 Consecutive Hours, Continuous Positive Airway Pressure (ICD-10-PCS; principal; 2021-10-30)
PROC: 02HV33Z Insertion of Infusion Device into Superior Vena Cava, Percutaneous Approach (ICD-10-PCS; 2021-10-30)
PROC: B548ZZA Ultrasonography of Superior Vena Cava, Guidance (ICD-10-PCS; 2021-10-30)
PROC: 30243N1 Transfusion of Nonautologous Red Blood Cells into Central Vein, Percutaneous Approach (ICD-10-PCS; 2021-10-31)
DX: A41.9 Sepsis, unspecified organism (principal); L89.153 Pressure ulcer of sacral region, stage 3; J96.01 Acute respiratory failure with hypoxia; E43 Unspecified severe protein-calorie malnutrition; I50.31 Acute diastolic (congestive) heart failure; J18.9 Pneumonia, unspecified organism; R65.21 Severe sepsis with septic shock; J96.02 Acute respiratory failure with hypercapnia; G93.40 Encephalopathy, unspecified; I69.354 Hemiplegia and hemiparesis following cerebral infarction affecting left non-dominant side; J98.11 Atelectasis; J90 Pleural effusion, not elsewhere classified; I82.612 Acute embolism and thrombosis of superficial veins of left upper extremity; K92.2 Gastrointestinal hemorrhage, unspecified; N17.9 Acute kidney failure, unspecified; E87.0 Hyperosmolality and hypernatremia; E87.2 Acidosis; Z93.1 Gastrostomy status; Z68.24 Body mass index [BMI] 24.0-24.9, adult; I48.0 Paroxysmal atrial fibrillation; D64.9 Anemia, unspecified; E78.5 Hyperlipidemia, unspecified; E83.42 Hypomagnesemia; E88.09 Other disorders of plasma-protein metabolism, not elsewhere classified; F03.90 Unspecified dementia, unspecified severity, without behavioral disturbance, psychotic disturbance, mood disturbance, and anxiety; K44.9 Diaphragmatic hernia without obstruction or gangrene; Z86.16 Personal history of COVID-19; Z79.01 Long term (current) use of anticoagulants; Z51.5 Encounter for palliative care; Z87.01 Personal history of pneumonia (recurrent); I11.0 Hypertensive heart disease with heart failure; N40.0 Benign prostatic hyperplasia without lower urinary tract symptoms; T17.990A Other foreign object in respiratory tract, part unspecified in causing asphyxiation, initial encounter; X58.XXXA Exposure to other specified factors, initial encounter; Y93.9 Activity, unspecified; Y92.129 Unspecified place in nursing home as the place of occurrence of the external cause; L89.816 Pressure-induced deep tissue damage of head; R13.10 Dysphagia, unspecified; Z20.822 Contact with and (suspected) exposure to COVID-19
CPT/HCPCS: 36415; 36569; 36600; 70030-TC; 71045; 71275; 83605; 83735; 84100; 84443; 84484; 85018; 85025; 85610; 85730; 86850; 86900; 86901; 86920; 87040; 87070; 87086; 93005; 93307; 93880; 94640; 94660; 94664; 99082-TC; A4663; A6209; C9113; G0378; J1650; J1940; J2060; J2270; J2274; J2370; J2543; J3370; J3475; J3480; J3490; J3590; J7030; J7050; J7060; P9016; P9047; Q9967